=== PATIENT | female | born 1960 | race Two or more races ===

== ENCOUNTER → 2020-04-08 | Outpatient (CLI) | payer BC | END | disposition home or self-care (01) | LOC: LAB 10:48 | PROVIDERS: ATTEND Obstetrics & Gynecology Obstetrics | DX: Z01.818 Encounter for other preprocedural examination (principal); Z11.59 Encounter for screening for other viral diseases | CPT/HCPCS: C9803; U0003 ==

== ENCOUNTER → 2020-04-11 | Outpatient (CLI) | payer BC | END | disposition home or self-care (01) | LOC: MAMMO 10:43 | PROVIDERS: ATTEND Obstetrics & Gynecology Obstetrics | DX: Z12.31 Encounter for screening mammogram for malignant neoplasm of breast (principal); N63.41 Unspecified lump in right breast, subareolar | CPT/HCPCS: 77067 ==

== ENCOUNTER → 2020-06-25 | Outpatient (CLI) | payer BC ==
[~2020-06-25] MED LIST: ALBUTEROL INHALER; AMLO5TAB88 PO; ASPI-1497 PO; CO Q-10 PO; FLUT9.9S BOTHNSTRLS; IBUP-2028 PO; RED YEAST RICE; SITA1TBM4 PO
== END | disposition home or self-care (01) ==
LOC: RAD 15:06
DX: Z01.818 Encounter for other preprocedural examination (principal); J98.11 Atelectasis
CPT/HCPCS: 71046

== ENCOUNTER → 2020-06-28 | Outpatient (CLI) | payer BC ==
[~2020-06-28] MED LIST changes: +AMLO5TAB4 PO; +ASCO500C18 PO; +ASPI-1158 PO; +CEPH-568 PO; +CEPH500C2 PO; +CHOL200077 MT; +GLUC-167 PO; +LOSA1TAB40 PO; +RED1POWD2 MC; +SITA1TAB6 MT; +TURM500C6 PO
== END | disposition home or self-care (01) ==
LOC: LAB 10:15
PROVIDERS: ATTEND Obstetrics & Gynecology Obstetrics
DX: Z01.812 Encounter for preprocedural laboratory examination (principal); Z20.828 Contact with and (suspected) exposure to other viral communicable diseases
CPT/HCPCS: C9803; U0003

== ENCOUNTER 2020-07-02 05:44 | Inpatient (IN) | payer BC ==
[~2020-07-02] VITALS: Ht 154.9 cm; Wt 59.0 kg
[~2020-07-02 05:44] MED LIST changes: -AMLO5TAB4 PO; -ASCO500C18 PO; -ASPI-1158 PO; -CEPH-568 PO; -CEPH500C2 PO; -CHOL200077 MT; -GLUC-167 PO; -LOSA1TAB40 PO; -RED1POWD2 MC; -SITA1TAB6 MT; -TURM500C6 PO
[2020-07-02] MEDS ORDERED: SODIUM CHLORIDE 0.9% 1,000 ML IV SCH (07:00)
[2020-07-02] MEDS ORDERED: VASOPRESSIN 20 UNIT/ML 1ML ONE (07:12)
[2020-07-02] MEDS ORDERED: SKIN ADHESIVE 0.7 GM EA TOP ONE (07:12)
[2020-07-02 07:14] LABS: CLARITY URINE CLEAR (CLEAR); COLOR URINE YELLOW (YELLOW); KETONES URINE NEGATIVE (NEGATIVE); LEUKOCYTE ESTERASE URINE NEGATIVE (NEGATIVE); NITRITE URINE NEGATIVE (NEGATIVE); OCCULT BLOOD URINE NEGATIVE (NEGATIVE); PROTEIN URINE 1+ (NEGATIVE); SPECIFIC GRAVITY URINE 1.016 (1.005-1.030); UROBILINOGEN URINE 0.2 E.U./dL (0.2-1.0)
[2020-07-02 07:26] LABS: UCG SCREEN NEGATIVE
[2020-07-02] MEDS ORDERED: NEOSTIGMINE METHYLSULFATE 1MG/ML 10 ML VIAL ONE (07:26)
[2020-07-02] MEDS ORDERED: FENTANYL CITRATE/PF 50MCG/ML 2ML VIAL ONE (07:26)
[2020-07-02] MEDS ORDERED: PROPOFOL 200MG/20ML VIAL IV ONE (07:26)
[2020-07-02] MEDS ORDERED: ROCURONIUM BROMIDE 10MG/ML VIAL 5ML IV ONE (07:26)
[2020-07-02] MEDS ORDERED: MIDAZOLAM HCL 2 MG/2 ML VIAL ONE (07:27)
[2020-07-02] MEDS ORDERED: GLYCOPYRROLATE 0.2 MG/ML 2ML VIAL ONE (07:27)
[2020-07-02] MEDS ORDERED: CEPH500C2 PO (07:31)
[2020-07-02] MEDS ORDERED: BUPIVACAINE HCL/PF 0.5% (5MG/ML) 10ML ONE ×2 (08:07→08:08)
[2020-07-02] MEDS ORDERED: HYDROMORPHONE HCL/PF 2MG/ML CPJ IV PRN (08:15)
[2020-07-02] MEDS ORDERED: MEPERIDINE HCL/PF 25MG/ML CPJ IV PRN (08:15)
[2020-07-02] MEDS ORDERED: LABETALOL 5MG/ML SYR 20 MG/4 ML SYRINGE IV PRN (08:15)
[2020-07-02] MEDS ORDERED: ONDANSETRON HCL 4MG/2ML INJ IV PRN (08:15)
[2020-07-02] MEDS ORDERED: DEXAMETHASONE 4MG/ML 1ML VIAL ONE (08:30)
[2020-07-02] MEDS ORDERED: METHYLENE BLUE 50 MG/10 ML AMP IV ONE (09:05)
[2020-07-02] MEDS ORDERED: BACITRACIN 15GM TUBE TOP ONE (11:29)
[2020-07-02 12:00] VITALS: BP 103/55
[2020-07-02] MEDS ORDERED: IBUPROFEN 600MG TABLET PO PRN (12:30)
[2020-07-02] MEDS ORDERED: LACTATED RINGERS 1,000 ML IV SCH (12:30)
[2020-07-02 16:00] VITALS: BP 125/64
[2020-07-02] MEDS ORDERED: CHOL200077 MT (17:24)
[2020-07-02] MEDS ORDERED: GLUC-167 PO (17:24)
[2020-07-02] MEDS ORDERED: SITA1TAB6 MT (17:24)
[2020-07-02] MEDS ORDERED: ASCO500C18 PO (17:24)
[2020-07-02] MEDS ORDERED: LOSA1TAB40 PO (17:24)
[2020-07-02] MEDS ORDERED: ASPI-1158 PO (17:24)
[2020-07-02] MEDS ORDERED: TURM500C6 PO (17:24)
[2020-07-02] MEDS ORDERED: AMLO5TAB4 PO (17:24)
[2020-07-02] MEDS ORDERED: RED1POWD2 MC (17:24)
[2020-07-02] MEDS ORDERED: CEPH-568 PO (17:24)
[2020-07-02] MEDS: HYDROCODONE/APAP 7.5/325MG 1 TAB TABLET PO PRN (17:37)
[2020-07-02 20:00] VITALS: BP 109/59
[2020-07-02 20:50] VITALS: BP 103/55
[2020-07-02] MEDS: AMLODIPINE 5MG TABLET PO SCH (21:00)
[2020-07-02] MEDS: CALCIUM CARBONATE 500MG TABLET CHEW PO PRN (21:02)
[2020-07-02] MEDS: MORPHINE SULFATE 2 MG/ML CPJ (NOT FOR IM USE) IV PRN (21:03)
[2020-07-02] MEDS ORDERED: THROAT LOZENGES-BENZOCAINE/MENTH/CETYLPYRD CL LOZENGES MM PRN (22:00)
[2020-07-03] MEDS: MORPHINE SULFATE 2 MG/ML CPJ (NOT FOR IM USE) IV PRN ×3 (01:44→10:36)
[2020-07-03] MEDS: HYDROCODONE/APAP 7.5/325MG 1 TAB TABLET PO PRN ×2 (04:56→21:27)
[2020-07-03] MEDS: CALCIUM CARBONATE 500MG TABLET CHEW PO PRN (06:24)
[2020-07-03 06:43] LABS: BASOPHILS % 0.2 % (0.0-2.0); EOSINOPHILS % 0.2 % (0.0-5.0); HEMATOCRIT. 30.7 % (36.0-48.0); HEMOGLOBIN. 10.2 g/dL (12.0-16.0); LYMPHOCYTES % 18.7 % (20.0-50.0); MEAN CORPUSCULAR HEMOGLOBIN 26.2 pg (28.0-32.0); MEAN CORPUSCULAR VOLUME 79.1 fL (81.0-99.0); MEAN PLATELET VOLUME 7.3 fl (7.4-10.4); MONOCYTES % 9.7 % (2.0-8.0); NEUTROPHILS % 71.2 % (40.0-76.0); PLATELET 323 x1000/uL (130-400); RED BLOOD CELL COUNT 3.89 mill/uL (4.2-5.4); RED CELL DISTRIBUTION WIDTH 13.7 % (11.6-14.6)
[2020-07-03 07:16] LABS: CHLORIDE 104 mEq/L (98-107)
[2020-07-03 08:00] VITALS: BP 110/54
[2020-07-03] MEDS: AMLODIPINE 5MG TABLET PO SCH ×2 (09:00→21:00)
[2020-07-03] MEDS: CEPHALEXIN 250MG CAPSULE PO SCH ×3 (09:00→17:53)
[2020-07-03] MEDS ORDERED: CEPHALEXIN 250MG CAPSULE PO SCH (09:00)
[2020-07-03] MEDS: JANUMET PO SCH ×2 (09:01→17:54)
[2020-07-03 12:00] VITALS: BP 115/69
[2020-07-03] MEDS: HYDROCODONE/ACETAMINOPHEN 10/325MG TABLET PO PRN ×2 (12:58→17:57)
[2020-07-03 16:00] VITALS: BP 107/50
[2020-07-03 19:00] VITALS: BP 108/51
[2020-07-03] MEDS ORDERED: ZOLPIDEM TARTRATE 5MG TABLET PO PRN (21:00)
[2020-07-04] VITALS: BP 113/65
[2020-07-04] MEDS: HYDROCODONE/APAP 7.5/325MG 1 TAB TABLET PO PRN ×2 (04:41→12:18)
[2020-07-04] MEDS: CALCIUM CARBONATE 500MG TABLET CHEW PO PRN (04:41)
[2020-07-04 08:00] VITALS: BP 105/62
[2020-07-04] MEDS: AMLODIPINE 5MG TABLET PO SCH (08:32)
[2020-07-04] MEDS: CEPHALEXIN 250MG CAPSULE PO SCH ×2 (08:42→12:18)
[2020-07-04] MEDS: JANUMET PO SCH (08:42)
[2020-07-04] MEDS: HYDROCODONE/ACETAMINOPHEN 10/325MG TABLET PO PRN ×2 (08:43→15:32)
[2020-07-04] MEDS ORDERED: DOCUSATE SODIUM 100MG CAPSULE PO SCH (09:00)
[2020-07-04 12:00] VITALS: BP 123/56
[2020-07-04 14:53] VITALS: BP 123/56
[2020-07-04 16:00] VITALS: BP 105/64
== END 2020-07-04 16:20 | disposition home or self-care (01) | DRG 743 ==
LOC: OR 05:44 → 6EST 05:55
PROVIDERS: ADMIT Obstetrics & Gynecology Obstetrics; ATTEND Obstetrics & Gynecology Obstetrics
PROC: 0UT97ZZ Resection of Uterus, Via Natural or Artificial Opening (ICD-10-PCS; principal; 2020-07-02)
PROC: 0UT70ZZ Resection of Bilateral Fallopian Tubes, Open Approach (ICD-10-PCS; 2020-07-02)
PROC: 0TSC0ZZ Reposition Bladder Neck, Open Approach (ICD-10-PCS; 2020-07-02)
PROC: 0JQC0ZZ Repair Pelvic Region Subcutaneous Tissue and Fascia, Open Approach (ICD-10-PCS; 2020-07-02)
PROC: 0JQC0ZZ Repair Pelvic Region Subcutaneous Tissue and Fascia, Open Approach (ICD-10-PCS; 2020-07-02)
DX: N81.4 Uterovaginal prolapse, unspecified (principal); E11.9 Type 2 diabetes mellitus without complications; I10 Essential (primary) hypertension; N39.3 Stress incontinence (female) (male); N81.6 Rectocele; J45.909 Unspecified asthma, uncomplicated; Z82.49 Family history of ischemic heart disease and other diseases of the circulatory system; Z83.3 Family history of diabetes mellitus; Z90.710 Acquired absence of both cervix and uterus; Z88.8 Allergy status to other drugs, medicaments and biological substances
CPT/HCPCS: 36415; 80048; 81003; 81025; 82962; 85025; 86850; 86900; 88302; 88305; J1100; J1170; J2250; J2270; J2405; J2704; J2710; J3010; J3490; J7060; Q9968

== ENCOUNTER → 2022-12-04 | Outpatient (CLI) | payer BC ==
[~2022-12-04] MED LIST changes: +AMLO5TAB4 PO; +ASCO500C18 PO; +ASPI-1406 PO; +CEPH-568 PO; +CEPH500C2 PO; +CHOL200077 MT; +GLUC-167 PO; +LOSA1TAB40 PO; +RED1POWD2 MC; +SITA1TAB6 MT; +TURM500C6 PO
[2022-12-04 11:15] LABS: CHLORIDE 104 mEq/L (98-107)
[2022-12-04 11:24] LABS: HDL CHOLESTEROL 79 mg/dL (40-59); LDL CHOLESTEROL 85 mg/dL (5-100)
[2022-12-04 11:31] LABS: CLARITY URINE CLEAR (CLEAR); COLOR URINE YELLOW (YELLOW); KETONES URINE NEGATIVE (NEGATIVE); LEUKOCYTE ESTERASE URINE NEGATIVE (NEGATIVE); NITRITE URINE NEGATIVE (NEGATIVE); OCCULT BLOOD URINE NEGATIVE (NEGATIVE); PROTEIN URINE NEGATIVE (NEGATIVE); SPECIFIC GRAVITY URINE 1.006 (1.005-1.030); UROBILINOGEN URINE 0.2 E.U./dL (0.2-1.0)
[2022-12-06 13:06] LABS: *CREATININE RANDOM URINE 19.8 mg/dL (Not Estab.); MICROALBUMIN RANDOM URINE 11.8 ug/mL (Not Estab.)
== END | disposition home or self-care (01) ==
LOC: LAB 10:13
PROVIDERS: ATTEND Internal Medicine
DX: E55.9 Vitamin D deficiency, unspecified (principal); E78.5 Hyperlipidemia, unspecified
CPT/HCPCS: 36415; 80053; 80061; 81003; 82043; 82306; 82570; 83036

== ENCOUNTER → 2023-04-16 | Outpatient (CLI) | payer BC ==
[2023-04-16 09:02] LABS: CHLORIDE 107 mEq/L (98-107); INDEX HEMOLYSI 1 (1-3); INDEX ICTERIC 1 (1-4); INDEX LIPEMIC 1 (1-3); POTASSIUM 3.8 mEq/L (3.5-5.1); SODIUM 139 mEq/L (136-145)
[2023-04-16 09:13] LABS: ALANINE AMINOTRANSFERASE 20 IU/L (13-61); ALBUMIN 3.9 g/dL (3.4-5.0); ASPARTATE AMINOTRANSFERASE 16 IU/L (15-37); BILIRUBIN TOTAL 0.7 mg/dL (0.1-1.0); CALCIUM 9.2 mg/dL (8.5-10.1); CARBON DIOXIDE 24 mEq/L (21-32); CHOLESTEROL 141 mg/dL (<200); CREATININE 0.7 mg/dL (0.6-1.3); GLUCOSE 111 mg/dL (70-105); HDL CHOLESTEROL 52 mg/dL (40-59); LDL CHOLESTEROL 77 mg/dL (5-100); TRIGLYCERIDE 134 mg/dL (0-150); UREA NITROGEN BLOOD 13 mg/dL (7-21)
== END | disposition home or self-care (01) ==
LOC: LAB 07:56
PROVIDERS: ATTEND Internal Medicine
DX: E11.9 Type 2 diabetes mellitus without complications (principal); E78.5 Hyperlipidemia, unspecified
CPT/HCPCS: 36415; 80053; 80061; 83036

== ENCOUNTER → 2023-12-22 | Outpatient (CLI) | payer BC ==
[2023-12-22 09:26] LABS: CLARITY URINE CLEAR (CLEAR); COLOR URINE YELLOW (YELLOW); GLUCOSE URINE NEGATIVE (NEGATIVE); KETONES URINE NEGATIVE (NEGATIVE); LEUKOCYTE ESTERASE URINE TRACE (NEGATIVE); NITRITE URINE POSITIVE (NEGATIVE); OCCULT BLOOD URINE NEGATIVE (NEGATIVE); PH URINE 5.5 (4.5-8.0); PROTEIN URINE NEGATIVE (NEGATIVE); SPECIFIC GRAVITY URINE 1.012 (1.005-1.030); UROBILINOGEN URINE 0.2 E.U./dL (0.2-1.0)
[2023-12-22 09:35] LABS: BASOPHILS % 1.3 % (0.0-2.0); DIFFERENTIAL COMMENT 0; EOSINOPHILS % 7.8 % (0.0-5.0); HEMATOCRIT. 35.2 % (36.0-48.0); HEMOGLOBIN. 11.7 g/dL (12.0-16.0); LYMPHOCYTES % 41.7 % (20.0-50.0); MEAN CORPUSCULAR HEMOGLOBIN 26.5 pg (28.0-32.0); MEAN CORPUSCULAR HGB CONC 33.3 g/dL (31.0-37.0); MEAN CORPUSCULAR VOLUME 79.7 fL (81.0-99.0); MEAN PLATELET VOLUME 7.3 fl (7.4-10.4); MONOCYTES % 7.9 % (2.0-8.0); NEUTROPHILS % 41.3 % (40.0-76.0); PLATELET 376 x1000/uL (130-400); RED BLOOD CELL COUNT 4.42 mill/uL (4.2-5.4); RED CELL DISTRIBUTION WIDTH 13.9 % (11.6-14.6)
[2023-12-22 09:54] LABS: BACTERIA URINE 4+; RBC URINE NONE SEEN /hpf (0-2); SQUAMOUS EPITHELIAL CELL URINE 1+ /lpf (RARE/1+); WBC URINE 0-2 /hpf (0-2)
[2023-12-22 12:32] LABS: ALANINE AMINOTRANSFERASE 8 IU/L (10-49); ALBUMIN 4.4 g/dL (3.2-4.8); ASPARTATE AMINOTRANSFERASE 19 IU/L (<34); BILIRUBIN TOTAL 0.7 mg/dL (0.1-1.0); CALCIUM 8.9 mg/dL (8.7-10.4); CARBON DIOXIDE 21 mEq/L (21-32); CHLORIDE 107 mEq/L (98-107); CHOLESTEROL 158 mg/dL (<200); CREATININE 0.6 mg/dL (0.6-1.0); GLUCOSE 132 mg/dL (70-105); HDL CHOLESTEROL 50 mg/dL (>65); LDL CHOLESTEROL 76 mg/dL (5-100); POTASSIUM 3.7 mEq/L (3.5-5.1); PROTEIN TOTAL 7.3 g/dL (6.0-8.3); SODIUM 140 mEq/L (136-145); TRIGLYCERIDE 176 mg/dL (0-150); UREA NITROGEN BLOOD 9 mg/dL (9-23)
[2023-12-23 13:09] LABS: *CREATININE RANDOM URINE 66.1 mg/dL (Not Estab.); MICROALBUMIN RANDOM URINE 30.5 ug/mL (Not Estab.)
== END | disposition home or self-care (01) ==
LOC: LAB 08:39
PROVIDERS: ATTEND Internal Medicine
DX: E78.5 Hyperlipidemia, unspecified (principal); E11.9 Type 2 diabetes mellitus without complications
CPT/HCPCS: 36415; 80053; 80061; 81003; 82043; 82570; 83036; 85025

== ENCOUNTER → 2024-02-10 | Outpatient (CLI) | payer BC | END | disposition home or self-care (01) | LOC: RAD 12:46 | PROVIDERS: ATTEND Internal Medicine | DX: M79.604 Pain in right leg (principal) | CPT/HCPCS: 93971 ==

== ENCOUNTER → 2024-03-08 | Outpatient (CLI) | payer BC | END | disposition home or self-care (01) | LOC: RAD 07:50 | PROVIDERS: ATTEND Internal Medicine | DX: M25.561 Pain in right knee (principal) | CPT/HCPCS: 73560 ==

== ENCOUNTER → 2024-03-23 | Outpatient (CLI) | payer BC ==
[2024-03-23 11:44] LABS: CHLORIDE 104 mEq/L (98-107); POTASSIUM 4.1 mEq/L (3.5-5.1); SODIUM 140 mEq/L (136-145)
[2024-03-23 11:45] LABS: CARBON DIOXIDE 28 mEq/L (21-32)
[2024-03-23 11:46] LABS: CALCIUM 9.8 mg/dL (8.7-10.4)
[2024-03-23 11:50] LABS: CREATININE 0.7 mg/dL (0.6-1.0); GLUCOSE 112 mg/dL (70-105)
[2024-03-23 11:51] LABS: TRIGLYCERIDE 125 mg/dL (0-150); UREA NITROGEN BLOOD 10 mg/dL (9-23)
[2024-03-23 11:52] LABS: ALANINE AMINOTRANSFERASE 15 IU/L (10-49); ALBUMIN 4.5 g/dL (3.2-4.8); ASPARTATE AMINOTRANSFERASE 18 IU/L (<34); LDL CHOLESTEROL 106 mg/dL (5-100)
[2024-03-23 11:53] LABS: CHOLESTEROL 186 mg/dL (<200); HDL CHOLESTEROL 66 mg/dL (>65); PROTEIN TOTAL 7.3 g/dL (6.0-8.3)
== END | disposition home or self-care (01) ==
LOC: LAB 10:31
PROVIDERS: ATTEND Internal Medicine
DX: E11.9 Type 2 diabetes mellitus without complications (principal); E78.5 Hyperlipidemia, unspecified
CPT/HCPCS: 36415; 80053; 80061; 83036

== ENCOUNTER → 2024-06-26 | Outpatient (CLI) | payer BC ==
[2024-06-26 10:20] LABS: CHLORIDE 106 mEq/L (98-107); SODIUM 141 mEq/L (136-145)
[2024-06-26 10:21] LABS: CALCIUM 9.8 mg/dL (8.7-10.4); CARBON DIOXIDE 27 mEq/L (21-32)
[2024-06-26 10:26] LABS: CREATININE 0.8 mg/dL (0.6-1.0); GLUCOSE 124 mg/dL (70-105); TRIGLYCERIDE 192 mg/dL (0-150)
[2024-06-26 10:27] LABS: LDL CHOLESTEROL 63 mg/dL (5-100); UREA NITROGEN BLOOD 15 mg/dL (9-23)
[2024-06-26 10:28] LABS: ALANINE AMINOTRANSFERASE 13 IU/L (10-49); ALBUMIN 4.6 g/dL (3.2-4.8); ASPARTATE AMINOTRANSFERASE 15 IU/L (<34); CHOLESTEROL 138 mg/dL (<200); HDL CHOLESTEROL 45 mg/dL (>65)
[2024-06-26 10:29] LABS: BILIRUBIN TOTAL 0.8 mg/dL (0.1-1.0); PROTEIN TOTAL 8.3 g/dL (6.0-8.3)
[2024-06-27 13:08] LABS: *CREATININE RANDOM URINE 169.5 mg/dL (Not Estab.)
== END | disposition home or self-care (01) ==
LOC: LAB 09:11
PROVIDERS: ATTEND Internal Medicine
DX: E11.9 Type 2 diabetes mellitus without complications (principal); E78.5 Hyperlipidemia, unspecified
CPT/HCPCS: 36415; 80053; 80061; 82043; 82570; 83036

== ENCOUNTER → 2024-10-30 | Outpatient (CLI) | payer BC ==
[~2024-10-30] MED LIST changes: -AMLO5TAB4 PO; +AMLO5TAB5 PO
[2024-10-30 10:05] LABS: CLARITY URINE CLEAR (CLEAR); COLOR URINE YELLOW (YELLOW); GLUCOSE URINE NEGATIVE (NEGATIVE); KETONES URINE NEGATIVE (NEGATIVE); LEUKOCYTE ESTERASE URINE NEGATIVE (NEGATIVE); NITRITE URINE NEGATIVE (NEGATIVE); OCCULT BLOOD URINE NEGATIVE (NEGATIVE); PH URINE 5.5 (4.5-8.0); PROTEIN URINE NEGATIVE (NEGATIVE); SPECIFIC GRAVITY URINE 1.016 (1.005-1.030); UROBILINOGEN URINE 0.2 E.U./dL (0.2-1.0)
[2024-10-30 10:31] LABS: CARBON DIOXIDE 26 mEq/L (21-32); CHLORIDE 104 mEq/L (98-107); POTASSIUM 3.7 mEq/L (3.5-5.1); SODIUM 140 mEq/L (136-145)
[2024-10-30 10:32] LABS: CALCIUM 9.6 mg/dL (8.7-10.4)
[2024-10-30 10:36] LABS: CREATININE 0.7 mg/dL (0.6-1.0)
[2024-10-30 10:37] LABS: GLUCOSE 135 mg/dL (70-105); TRIGLYCERIDE 243 mg/dL (0-150); UREA NITROGEN BLOOD 14 mg/dL (9-23)
[2024-10-30 10:38] LABS: ALANINE AMINOTRANSFERASE 11 IU/L (10-49); ALBUMIN 4.4 g/dL (3.2-4.8); ASPARTATE AMINOTRANSFERASE 14 IU/L (<34); LDL CHOLESTEROL 86 mg/dL (5-100)
[2024-10-30 10:39] LABS: BILIRUBIN TOTAL 0.6 mg/dL (0.1-1.0); CHOLESTEROL 174 mg/dL (<200); HDL CHOLESTEROL 52 mg/dL (>65); PROTEIN TOTAL 7.6 g/dL (6.0-8.3)
[2024-10-31 09:10] LABS: *CREATININE RANDOM URINE 127.6 mg/dL (Not Estab.); MICROALBUMIN RANDOM URINE 21.3 ug/mL (Not Estab.)
== END | disposition home or self-care (01) ==
LOC: LAB 09:11
PROVIDERS: ATTEND Internal Medicine
DX: E11.9 Type 2 diabetes mellitus without complications (principal); E78.5 Hyperlipidemia, unspecified
CPT/HCPCS: 36415; 80053; 80061; 81003; 82043; 82570; 83036

== ENCOUNTER → 2025-02-05 | Outpatient (CLI) | payer BC ==
[2025-02-05 11:22] LABS: BASOPHILS % 0.9 % (0.0-2.0); DIFFERENTIAL COMMENT 0; EOSINOPHILS % 0.2 % (0.0-5.0); HEMATOCRIT. 35.5 % (36.0-48.0); HEMOGLOBIN. 11.6 g/dL (12.0-16.0); MEAN CORPUSCULAR HEMOGLOBIN 25.7 pg (28.0-32.0); MEAN CORPUSCULAR HGB CONC 32.7 g/dL (31.0-37.0); MEAN CORPUSCULAR VOLUME 78.6 fL (81.0-99.0); MEAN PLATELET VOLUME 7.3 fl (7.4-10.4); MONOCYTES % 6.5 % (2.0-8.0); NEUTROPHILS % 55.4 % (40.0-76.0); PLATELET 354 x1000/uL (130-400); RED BLOOD CELL COUNT 4.51 mill/uL (4.2-5.4); RED CELL DISTRIBUTION WIDTH 14.1 % (11.6-14.6); WHITE BLOOD COUNT 7.8 x1000/uL (4.5-11.0)
[2025-02-05 11:22] LABS: CLARITY URINE CLEAR (CLEAR); COLOR URINE YELLOW (YELLOW); GLUCOSE URINE NEGATIVE (NEGATIVE); KETONES URINE NEGATIVE (NEGATIVE); LEUKOCYTE ESTERASE URINE NEGATIVE (NEGATIVE); NITRITE URINE NEGATIVE (NEGATIVE); OCCULT BLOOD URINE NEGATIVE (NEGATIVE); PROTEIN URINE TRACE (NEGATIVE); SPECIFIC GRAVITY URINE 1.012 (1.005-1.030); UROBILINOGEN URINE 0.2 E.U./dL (0.2-1.0)
[2025-02-05 11:32] LABS: CARBON DIOXIDE 25 mEq/L (21-32); CHLORIDE 104 mEq/L (98-107); POTASSIUM 4.5 mEq/L (3.5-5.1); SODIUM 139 mEq/L (136-145)
[2025-02-05 11:33] LABS: CALCIUM 9.4 mg/dL (8.7-10.4)
[2025-02-05 11:37] LABS: CREATININE 0.7 mg/dL (0.6-1.0); GLUCOSE 123 mg/dL (70-105)
[2025-02-05 11:38] LABS: TRIGLYCERIDE 111 mg/dL (0-150); UREA NITROGEN BLOOD 17 mg/dL (9-23)
[2025-02-05 11:39] LABS: ALANINE AMINOTRANSFERASE 12 IU/L (10-49); ALBUMIN 4.7 g/dL (3.2-4.8); ASPARTATE AMINOTRANSFERASE 12 IU/L (<34); LDL CHOLESTEROL 43 mg/dL (5-100)
[2025-02-05 11:40] LABS: BILIRUBIN TOTAL 0.9 mg/dL (0.1-1.0); CHOLESTEROL 112 mg/dL (<200); HDL CHOLESTEROL 53 mg/dL (>65); PROTEIN TOTAL 7.7 g/dL (6.0-8.3)
[2025-02-05 11:42] LABS: SQUAMOUS EPITHELIAL CELL URINE 1+ /lpf (RARE/1+)
[2025-02-05 11:43] LABS: RBC URINE 0-2 /hpf (0-2)
[2025-02-05 11:45] LABS: WBC URINE NONE SEEN /hpf (0-2)
[2025-02-05 11:48] LABS: BACTERIA URINE NONE SEEN
== END | disposition home or self-care (01) ==
LOC: LAB 10:01
PROVIDERS: ATTEND Internal Medicine
DX: E11.9 Type 2 diabetes mellitus without complications (principal); E78.5 Hyperlipidemia, unspecified
CPT/HCPCS: 36415; 80053; 80061; 81003; 83036; 85025

== ENCOUNTER → 2025-05-25 | Outpatient (CLI) | payer BC ==
[~2025-05-25] MED LIST changes: -AMLO5TAB5 PO; +AMLO5TAB6 PO
[2025-05-25 09:45] LABS: BASOPHILS % 1.0 % (0.0-2.0); EOSINOPHILS % 4.8 % (0.0-5.0); HEMATOCRIT. 35.3 % (36.0-48.0); HEMOGLOBIN. 11.4 g/dL (12.0-16.0); LYMPHOCYTES % 43.5 % (20.0-50.0); MEAN PLATELET VOLUME 7.0 fl (7.4-10.4); MONOCYTES % 7.5 % (2.0-8.0); NEUTROPHILS % 43.2 % (40.0-76.0); PLATELET 314 x1000/uL (130-400); RED BLOOD CELL COUNT 4.54 mill/uL (4.2-5.4); RED CELL DISTRIBUTION WIDTH 14.0 % (11.6-14.6)
[2025-05-25 10:10] LABS: CREATININE 0.9 mg/dL (0.6-1.0); TRIGLYCERIDE 112 mg/dL (0-150); UREA NITROGEN BLOOD 17 mg/dL (9-23)
[2025-05-25 10:11] LABS: LDL CHOLESTEROL 36 mg/dL (5-100)
[2025-05-25 10:12] LABS: ASPARTATE AMINOTRANSFERASE 16 IU/L (<34); BILIRUBIN TOTAL 1.0 mg/dL (0.1-1.0)
[2025-05-25 10:13] LABS: PROTEIN TOTAL 7.3 g/dL (6.0-8.3)
[2025-05-26 13:12] LABS: *CREATININE RANDOM URINE 141.7 mg/dL (Not Estab.); MICROALBUMIN RANDOM URINE 8.5 ug/mL (Not Estab.); MICROALBUMIN/CREATININE RATIO 6.0 mg/g creat (0-29)
== END | disposition home or self-care (01) ==
LOC: LAB 09:11
PROVIDERS: ATTEND Internal Medicine
DX: E11.9 Type 2 diabetes mellitus without complications (principal); E78.5 Hyperlipidemia, unspecified; D64.9 Anemia, unspecified
CPT/HCPCS: 36415; 80053; 80061; 82043; 82570; 82728; 83036; 83540; 83550; 85025